=== PATIENT | female | born 1975 | race Caucasian/White ===

== ENCOUNTER 2016-05-10 11:34 | Emergency (ER) | payer OTHER ==
[~2016-05-10] VITALS: Wt 56.0 kg
[~2016-05-10 11:34] MED LIST: OMEP40CA6 PO
--- NOTE | 2016-05-10 13:25 | RADRPT ---
PROCEDURE: Chest Radiograph. CLINICAL INDICATION: Cough TECHNIQUE: Single frontal chest radiograph. COMPARISON: None available FINDINGS: The cardiomediastinal silhouette is within normal limits. No infiltrate or effusion is seen. Th e bones are intact. IMPRESSION: 1. Unremarkable chest radiograph. RPTAT: KK .Yadiel Aleman MD, Date Time Electronically viewed and signed by .Yadiel Aleman MD, on 05/10/2016 13:24 .B/
[2016-05-10] MEDS ORDERED: OSLT75C PO (13:48)
[2016-05-10] MEDS ORDERED: ACET500C5 PO (13:48)
--- NOTE | 2016-05-10 13:53 | ERD ---
ER Documentation Chief Complaint Date/Time DATE: 05/10/16 TIME: 13:52 Chief Complaint FLU LIKE SYMPTOMS FOR THE PAST 3 DAYS. NO DISTRESS. HPI This is a 40-year-old female presents to the ER with fever, body aches, cough, runny nose, headache since yesterday. Patient is worried that she has pneumonia she has got pneumonia in the past. She denies any chest pain or shortness of breath. There are no sick contacts at home. Has not traveled anywhere. She takes Tylenol for the fever body aches however they always return. She denies any sore throat or ear pain. She denies any nausea vomiting or diarrhea. ROS 12 point review of systems was done, all negative except per HPI. Medications Home Meds Active Scripts Acetaminophen* (Tylophen*) 500 Mg Capsule, 2 CAP PO Q8H Y for PAIN AND OR ELEVATED TEMP, #20 CAP Prov:JOHN LEWIS 05/10/16 Oseltamivir Phosphate* (Tamiflu*) 75 Mg Capsule, 75 MG PO BID for 5 Days, CAP Prov:JOHN LEWIS 05/10/16 Reported Medications Omeprazole* (Omeprazole*) 40 Mg Capsule.dr, 40 MG PO DAILY, CAP 09/02/13 Allergies Allergies: Coded Allergies: aspirin (Verified Allergy, Intermediate, 05/10/16) RASH PMhx/Soc History of Surgery: Yes (LAPAROSCOPY) Anesthesia Reaction: No Hx Neurological Disorder: No Hx Respiratory Disorders: Yes Hx Cardiac Disorders: No (pneumonia) Hx Psychiatric Problems: No Hx Miscellaneous Medical Probl: No Hx Alcohol Use: No Hx Substance Use: No Hx Tobacco Use: No Smoking Status: Never smoker Physical Exam Vitals Vital Signs Date Time Temp Pulse Resp B/P Pulse Ox O2 Delivery O2 Flow Rate FiO2 05/10/16 11:40 98.9 99 20 117/73 98 Physical Exam GENERAL: The patient is well-developed, well-nourished, in no acute distress. NECK: Cervical spine is non tender with no step off. Supple, no nuchal rigidity HEENT: Atraumatic. Pupils equal, round and reactive to light. Extraocular muscles are grossly intact. Conjunctivae pink, no discharge. Bilateral tympanic membranes are clear with no evidence of erythema, effusion or dulling of the light reflex. Tonsilar erythema with no exudates or uvular deviation. Clear rhinorrhea. RESPIRATORY: Clear to auscultation bilaterally. There are no rales, wheezes or rhonchi. HEART: Regular rate and rhythm. No murmurs, clicks, rubs or gallops. EXTREMITIES: No clubbing or cyanosis. Full range of motion. Grossly neurovascularly intact. NEUROLOGIC: Alert and oriented. Cranial nerves II through XII are intact. SKIN: There is no rash. The skin is warm and dry. Procedures/MDM Differential diagnosis includes but is not limited to; Viral URI, allergic rhinitis, bronchitis, pertussis,pneumonia. Patient does have influenza B. She will be treated for influenza. Clinical suspicion for pneumonia is low as patient appears well, is not hypoxic or in any respiratory distress. Additionally, patients physical examination is benign. Plan was discussed with patient they understand and agree. Patient needs to follow up with PCP in 1-2 days or return to ER sooner if symptoms worsen. Departure Diagnosis: Primary Impression: Influenza Condition: Stable Patient Instructions: Influenza (Adult) Additional Instructions: Call your primary care doctor TOMORROW for an appointment during the next 1-2 days.See the doctor sooner or return here if your condition worsens before your appointment time. JOHN LEWIS May 10, 2016 13:53
== END 2016-05-10 13:53 | disposition home or self-care (01) ==
LOC: FTE 11:34
DX: J10.1 Influenza due to other identified influenza virus with other respiratory manifestations (principal)
CPT/HCPCS: 71010; 87400